=== PATIENT | female | born 1980 | race Caucasian/White ===

== ENCOUNTER 2018-02-04 14:11 | Emergency (ER) | payer SELFPAY ==
[2018-02-04] MEDS ORDERED: NS 1,000 ML IV ONE (15:28)
[2018-02-04] MEDS ORDERED: LIDOCAINE 2% VISCOUS 15 ML UDCUP PO ONE (15:30)
[2018-02-04] MEDS ORDERED: HYOSCYAMINE SULFATE 0.125 MG TAB PO ONE (15:30)
[2018-02-04] MEDS ORDERED: MAG HYDROX/AL HYDROX/SIMETH 30 ML UDCUP PO ONE (15:30)
--- NOTE | 2018-02-04 15:34 | EDPHY ---
H & P Stated Complaint: upper abd pain cramping since last night Time Seen by Provider: 02/04/18 15:19 HPI/ROS: CHIEF COMPLAINT: left upper quadrant cramping HISTORY OF PRESENT ILLNESS: The patient is a 37-year-old female who comes to the emergency department complaining of a left upper abdominal cramping since last night. She has a history of GERD and takes omeprazole but symptoms are typically in her mid chest. She states that today they are more in her left upper abdomen. She describes it as a crampy feeling. She had similar symptoms a 2 weeks ago that lasted for about 5 days and then resolved spontaneously. No shortness of breath. She has vomited nonbloody. No diarrhea. No fever. She has never had any abdominal surgery. She has no urinary symptoms and denies risk of . No vaginal symptoms. Severity: Moderate Modifying factors: None REVIEW OF SYSTEMS: Constitutional: denies: chills, fever, recent illness, recent injury EENTM: denies: blurred vision, double vision, nose congestion Respiratory: denies: cough, shortness of breath Cardiac: denies: chest pain, irregular heart rate, lightheadedness, palpitations Gastrointestinal/Abdominal: See HPI denies: diarrhea, blood streaked stools Genitourinary: denies: dysuria, frequency, hematuria, pain Musculoskeletal: denies: joint pain, muscle pain Skin: denies: lesions, rash, jaundice, bruising Neurological: denies: headache, numbness, paresthesia, tingling, dizziness, weakness Hematologic/Lymphatic: denies: blood clots, easy bleeding, easy bruising Immunologic/allergic: denies: HIV/AIDS, transplant 10 systems reviewed and negative except as noted EXAM: GENERAL: Well-appearing, well-nourished and in no acute distress. HEAD: Atraumatic, normocephalic. EYES: Pupils equal round and reactive to light, extraocular movements intact, sclera anicteric, conjunctiva are normal. ENT: TMs normal, nares patent, oropharynx clear without exudates. Moist mucous membranes. NECK: Normal range of motion, supple without lymphadenopathy or JVD. LUNGS: Breath sounds clear to auscultation bilaterally and equal. No wheezes rales or rhonchi. HEART: Regular rate and rhythm without murmurs, rubs or gallops. ABDOMEN: Soft, nontender, normoactive bowel sounds. No guarding, no rebound. No masses appreciated. Negative Mcconnell's BACK: No CVA tenderness, no spinal tenderness, step-offs or deformities EXTREMITIES: Normal range of motion, no pitting or edema. No clubbing or cyanosis. NEUROLOGICAL: Cranial nerves II through XII grossly intact. Normal speech, normal gait. 5/5 strength, normal movement in all extremities, normal sensation , normal reflexes PSYCH: Normal mood, normal affect. SKIN: Warm, dry, normal turgor, no visible rashes or lesions. Source: Patient Exam Limitations: No limitations - Personal History Current Tetanus/Diphtheria Vaccine: No - Medical/Surgical History Hx Asthma: No Hx Chronic Respiratory Disease: No Hx Diabetes: No Hx Cardiac Disease: No Hx Renal Disease: No Hx Cirrhosis: No Hx Alcoholism: No Hx HIV/AIDS: No Hx Splenectomy or Spleen Trauma: No Other PMH: ovarian cyst - Family History Significant Family History: No pertinent family hx - Social History Smoking Status: Never smoked Alcohol Use: Sober Drug Use: None Constitutional: Initial Vital Signs Temperature (C) 36.7 C 02/04/18 14:14 Heart Rate 104 H 02/04/18 14:14 Respiratory Rate 18 02/04/18 14:14 Blood Pressure 128/89 H 02/04/18 14:14 O2 Sat (%) 95 02/04/18 14:14 O2 Delivery Mode Room Air Allergies/Adverse Reactions: No Known Allergies Allergy (Unverified 02/04/18 14:13) Home Medications: Medication Instructions Recorded Omeprazole 02/04/18 Sertraline HCl 02/04/18 traMADol [Ultram 50 mg (*)] 50 mg PO Q4 #10 tab 02/04/18 Medical Decision Making - Diagnostics EKG Interpretation: An EKG obtained and was read and documented in trace view. Please see trace view for full reading and report. Sinus rhythm, no acute ischemic changes borderline T-wave abnormalities Imaging Results: Imaging Impressions Abdomen Ultrasound 02/04/18 15:29 Impression: 1. Hepatomegaly and hepatic steatosis without definite focal masses or ascites. 2. No cholelithiasis or biliary ductal dilation. Findings and recommendations discussed with Emergency Department physician, SANDHYA VIRGEN at 16:22 hour, 02/04/2018. Final report concurs with initial preliminary interpretation. Imaging: Discussed imaging studies w/ order desk caller Radiologist ED Course/Re-evaluation: 515 the patient is feeling much better after the GI cocktail. Her lab work and ultrasound are reassuring. We discussed options. Her abdominal exam remains benign. I recommended she follow up with GI for endoscopy. I will also have her increase her omeprazole. She is also requesting tramadol for pain control but states that she will use it sparingly. We discussed the risks. Differential Diagnosis: Partial list of the Differential diagnosis considered include but were not limited to; peptic ulcer disease, GERD, biliary disease and although unlikely based on the history and physical exam, I also considered pancreatitis, hepatitis, appendicitis, ovarian cyst, , UTI or kidney stone. I discussed these differential diagnoses and the plan with the patient as well as the usual and expected course. The patient understands that the diagnosis is provisional and that in medicine we are not always correct and that further workup is often warranted. Usual and customary warnings were given. All of the patient's questions were answered. The patient was instructed to return to the emergency department should the symptoms at all worsen or return, otherwise to followup with the physician as we discussed. - Data Points Laboratory Results: Laboratory Results 02/04/18 16:25 02/04/18 16:25 02/04/18 02/04/18 02/04/18 16:25 16:25 16:25 WBC 9.40 10^3/uL 10^3/uL (3.80-9.50) RBC 4.75 10^6/uL 10^6/uL (4.18-5.33) Hgb 12.7 g/dL g/dL (12.6-16.3) Hct 39.4 % % (38.0-47.0) MCV 82.9 fL fL (81.5-99.8) MCH 26.7 pg L pg (27.9-34.1) MCHC 32.2 g/dL L g/dL (32.4-36.7) RDW 12.9 % % (11.5-15.2) Plt Count 307 10^3/uL 10^3/uL (150-400) MPV 10.3 fL fL (8.7-11.7) Neut % (Auto) 72.1 % % (39.3-74.2) Lymph % (Auto) 20.6 % % (15.0-45.0) [place] % (Auto) 4.4 % L % (4.5-13.0) Eos % (Auto) 2.2 % % (0.6-7.6) Baso % (Auto) 0.4 % % (0.3-1.7) Nucleat RBC Rel Count 0.0 % % (0.0-0.2) Absolute Neuts (auto) 6.77 10^3/uL H 10^3/uL (1.70-6.50) Absolute Lymphs (auto) 1.94 10^3/uL 10^3/uL (1.00-3.00) Absolute Monos (auto) 0.41 10^3/uL 10^3/uL (0.30-0.80) Absolute Eos (auto) 0.21 10^3/uL 10^3/uL (0.03-0.40) Absolute Basos (auto) 0.04 10^3/uL 10^3/uL (0.02-0.10) Absolute Nucleated RBC 0.00 10^3/uL 10^3/uL (0-0.01) Immature Gran % 0.3 % % (0.0-1.1) Immature Gran # 0.03 10^3/uL 10^3/uL (0.00-0.10) Sodium 137 mEq/L mEq/L (135-145) Potassium 4.3 mEq/L mEq/L (3.3-5.0) Chloride 105 mEq/L mEq/L (97-110) Carbon Dioxide 21 mEq/l L mEq/l (22-31) Anion Gap 11 mEq/L mEq/L (8-16) BUN 10 mg/dL mg/dL (7-23) Creatinine 0.6 mg/dL mg/dL (0.6-1.0) Estimated GFR > 60 Glucose 122 mg/dL H mg/dL (70-100) Calcium 9.2 mg/dL mg/dL (8.5-10.4) Total Bilirubin 0.5 mg/dL mg/dL (0.1-1.4) Conjugated Bilirubin 0.1 mg/dL mg/dL (0.0-0.5) Unconjugated Bilirubin 0.4 mg/dL mg/dL (0.0-1.1) AST 49 IU/L H IU/L (14-46) ALT 79 IU/L H IU/L (9-52) Alkaline Phosphatase 61 IU/L IU/L (38-126) Total Protein 7.2 g/dL g/dL (6.3-8.2) Albumin 4.1 g/dL g/dL (3.5-5.0) Lipase 2641 IU/L H IU/L (23-300) Beta HCG, Qual NEGATIVE Urine Color Urine Appearance Urine pH Ur Specific [place] Urine Protein Urine Ketones Urine Blood Urine Nitrate Urine Bilirubin Urine Urobilinogen Ur Leukocyte Esterase Urine RBC Urine WBC Ur Epithelial Cells Urine Bacteria Urine Mucus Urine Glucose 02/04/18 16:07 WBC RBC Hgb Hct MCV MCH MCHC RDW Plt Count MPV Neut % (Auto) Lymph % (Auto) [place] % (Auto) Eos % (Auto) Baso % (Auto) Nucleat RBC Rel Count Absolute Neuts (auto) Absolute Lymphs (auto) Absolute Monos (auto) Absolute Eos (auto) Absolute Basos (auto) Absolute Nucleated RBC Immature Gran % Immature Gran # Sodium Potassium Chloride Carbon Dioxide Anion Gap BUN Creatinine Estimated GFR Glucose Calcium Total Bilirubin Conjugated Bilirubin Unconjugated Bilirubin AST ALT Alkaline Phosphatase Total Protein Albumin Lipase Beta HCG, Qual Urine Color YELLOW Urine Appearance HAZY Urine pH 5.0 (5.0-7.5) Ur Specific [place] 1.027 (1.002-1.030) Urine Protein NEGATIVE (NEGATIVE) Urine Ketones NEGATIVE (NEGATIVE) Urine Blood NEGATIVE (NEGATIVE) Urine Nitrate NEGATIVE (NEGATIVE) Urine Bilirubin NEGATIVE (NEGATIVE) Urine Urobilinogen NEGATIVE EU EU (0.2-1.0) Ur Leukocyte Esterase NEGATIVE (NEGATIVE) Urine RBC NONE SEEN /hpf /hpf (0-3) Urine WBC 3-5 /hpf H /hpf (0-3) Ur Epithelial Cells TRACE /lpf /lpf (NONE-1+) Urine Bacteria TRACE /hpf H /hpf (NONE SEEN) Urine Mucus 1+ /lpf /lpf (NONE-1+) Urine Glucose NEGATIVE (NEGATIVE) Medications Given: Discontinued Medications Al Hydroxide/Mg Hydroxide (Maalox Susp) 30 ml PO ONCE ONE Stop: 02/04/18 15:31 Last Admin: 02/04/18 16:19 Dose: 30 ml Hyoscyamine Sulfate (Levsin, Hyomax-Sl) 0.25 mg PO ONCE ONE Stop: 02/04/18 15:31 Last Admin: 02/04/18 16:19 Dose: 0.25 mg Sodium Chloride (Ns) 1,000 mls @ 0 mls/hr IV EDNOW ONE; Wide Open PRN Reason: Protocol Stop: 02/04/18 15:29 Last Admin: 02/04/18 16:28 Dose: 1,000 mls Lidocaine (Lidocaine 2% Viscous) 15 ml PO ONCE ONE Stop: 02/04/18 15:31 Last Admin: 02/04/18 16:19 Dose: 15 ml Departure - Departure Disposition: [facility] Inpatient Acute Clinical Impression: Abdominal pain Qualifiers: Abdominal location: epigastric Qualified Code(s): R10.13 - Epigastric pain Condition: Fair Instructions: Abdominal Pain (ED) Additional Instructions: Increase her omeprazole to twice daily dosing. Referrals: Lea Rodriguez PA [Primary Care Provider] - As per Instructions Ruperto Cooley MD [Medical Doctor] - 5-7 days, call for appt. Soco Sepulveda MD [Medical Doctor] - 5-7 days, call for appt. Prescriptions: traMADol [Ultram 50 mg (*)] 50 mg PO Q4 #10 tab
--- NOTE | 2018-02-04 16:27 | CPEKG ---
Test Reason : OPEN Blood Pressure : / mmHG Vent. Rate : 075 BPM Atrial Rate : 075 BPM P-R Int : 143 ms QRS Dur : 091 ms QT Int : 381 ms P-R-T Axes : 033 011 -03 degrees QTc Int : 426 ms Sinus rhythm Low voltage, precordial leads Borderline abnrm T, anterolateral leads Confirmed by Natanael Barber ([id number]) on 02/04/2018 4:26:10 PM Referred By: Confirmed By:Natanael Barber
[2018-02-04 16:38] LABS: PLATELET COUNT 307 10^3/uL (150-400)
[2018-02-04 17:41] VITALS: BP 109/74
== END 2018-02-04 17:41 | disposition still patient (30) ==
DX: R10.13 Epigastric pain (principal)

== ENCOUNTER 2018-07-27 14:02 | Emergency (ER) | payer OTHER ==
[2018-07-27] MEDS ORDERED: LIDOCAINE 2% VISCOUS 15 ML UDCUP PO ONE (15:30)
[2018-07-27] MEDS ORDERED: MAG HYDROX/AL HYDROX/SIMETH 30 ML UDCUP PO ONE (15:30)
[2018-07-27] MEDS ORDERED: HYOSCYAMINE SULFATE 0.125 MG TAB PO ONE (15:30)
--- NOTE | 2018-07-27 15:34 | EDPHY ---
H & P Stated Complaint: Epigastric pain intermittantly for several months. Time Seen by Provider: 07/27/18 15:14 HPI/ROS: CHIEF COMPLAINT: Epigastric pain HISTORY OF PRESENT ILLNESS: 37-year-old female presents with intermittent epigastric pain. Onset intermittent pain in January 2018. Workup including laboratory studies and ultrasound were negative. She was placed on Prilosec. She continues to have intermittent pain, especially in the mornings when she wakes up. This morning she awoke with a moderate gnawing sensation in her epigastrium. She took Prilosec with some relief. Continues to have mild epigastric pain. She has been in this emergency department for the pain and has followed up with her primary care physician. The plan is for endoscopy because of persistent symptoms. REVIEW OF SYSTEMS: complete 10 point ROS reviewed and is negative except for the noted elements in the HPI - Personal History Current Tetanus Diphtheria and Acellular Pertussis (TDAP): Yes - Medical/Surgical History Hx Asthma: No Hx Chronic Respiratory Disease: No Hx Diabetes: No Hx Cardiac Disease: No Hx Renal Disease: No Hx Cirrhosis: No Hx Alcoholism: No Hx HIV/AIDS: No Hx Splenectomy or Spleen Trauma: No Other PMH: ovarian cyst - Social History Smoking Status: Never smoked - Physical Exam Exam: General Appearance: Alert, pleasant Eyes: Pupils equal and round, no conjunctival pallor ENT, Mouth: Mucous membranes moist Neck: Normal inspection Respiratory: Lungs are clear to auscultation Cardiovascular: Regular rate and rhythm Gastrointestinal: Abdomen is soft, epigastric tenderness Neurological: A&O, nonfocal, normal gait Skin: Warm and dry Extremities: Normal inspection Psychiatric: Mood and affect normal Constitutional: Initial Vital Signs Temperature (C) 36.5 C 07/27/18 14:09 Heart Rate 84 07/27/18 14:09 Respiratory Rate 18 07/27/18 14:09 Blood Pressure 110/82 H 07/27/18 14:09 O2 Sat (%) 94 07/27/18 14:09 O2 Delivery Mode Room Air Allergies/Adverse Reactions: No Known Allergies Allergy (Unverified 02/04/18 14:13) Home Medications: Medication Instructions Recorded Omeprazole 07/27/18 Medical Decision Making ED Course/Re-evaluation: This patient presents with recurrent epigastric pain. Prior w/u including RUQ sono negative. Will give trial of meds, consider labs/imaging if not improved. A GI cocktail was given. [place] better, cont'd mild sx. Protonix 40mg po given. Cont's to feel better, asks for food. Improved after food, wants to go home. Abd exam remains benign. Strongly encouraged GI f/u for consideration of endoscopy. Differential Diagnosis: includes though not limited to PUD, gastritis, cholecystitis, pancreatitis, hepatitis, SBO, infectious etiology - Data Points Medications Given: Discontinued Medications Al Hydroxide/Mg Hydroxide (Maalox Susp) 30 ml PO ONCE ONE Stop: 07/27/18 15:31 Last Admin: 07/27/18 15:37 Dose: 30 ml Hyoscyamine Sulfate (Levsin, Hyomax-Sl) 0.25 mg PO ONCE ONE Stop: 07/27/18 15:31 Last Admin: 07/27/18 15:36 Dose: 0.25 mg Lidocaine (Lidocaine 2% Viscous) 15 ml PO ONCE ONE Stop: 07/27/18 15:31 Last Admin: 07/27/18 15:37 Dose: 15 ml Ondansetron HCl (Zofran Odt) 4 mg PO EDNOW ONE Stop: 07/27/18 16:07 Last Admin: 07/27/18 16:09 Dose: 4 mg Pantoprazole Sodium (Protonix) 40 mg PO EDNOW ONE Stop: 07/27/18 16:07 Last Admin: 07/27/18 16:09 Dose: 40 mg Departure - Departure Disposition: Home, Routine, Self-Care Clinical Impression: Peptic ulcer disease Condition: Good Instructions: Gastritis (ED), Diet for Stomach Ulcers and Gastritis (ED) Additional Instructions: Avoid fatty and spicy foods. Take Mylanta 30 min before meals and at bedtime. Continue Prilosec as directed. A Referrals: Cayla Edmondson MD [Primary Care Provider] - 2-3 days without fail
[2018-07-27] MEDS ORDERED: ONDANSETRON DISINTEGRATING 4 MG TAB PO ONE (16:06)
[2018-07-27] MEDS ORDERED: PANTOPRAZOLE SODIUM 40 MG TAB PO ONE ×2 (16:06→16:07)
[2018-07-27] MEDS ORDERED: ONDANSETRON DISINTEGRATING 4 MG TAB ONE (16:07)
[2018-07-27 17:07] VITALS: BP 165/75
== END 2018-07-27 16:45 | disposition home or self-care (01) ==
DX: K27.9 Peptic ulcer, site unspecified, unspecified as acute or chronic, without hemorrhage or perforation (principal); Z79.899 Other long term (current) drug therapy

== ENCOUNTER → 2018-08-17 | Outpatient (CLI) | payer OTHER ==
[~2018-08-17] MED LIST: MIDAZOLAM 2 MG/2 ML VIAL ONE
== END ==
LOC: CIMAGING 07:51
PROVIDERS: ATTEND Internal Medicine Gastroenterology
DX: K82.8 Other specified diseases of gallbladder (principal); R16.0 Hepatomegaly, not elsewhere classified; K76.0 Fatty (change of) liver, not elsewhere classified; R10.13 Epigastric pain
CPT/HCPCS: 76705-PO; J2250